=== PATIENT | male | born 2000 | race Caucasian/White ===

== ENCOUNTER 2021-02-18 21:36 | Emergency (ER) | payer OTHER ==
[~2021-02-18 21:36] MED LIST: AMOXIL250 MG/5 M PO; BACTROBAN OINT22 GM PO; CLARITIN10 MG PO; DDAVP; KEFLEX250 MG/5 M PO; LIDEX0.05% T; MOTRIN400 MG PO; [UNRECOGNIZED DRUG - CODE]; [UNRECOGNIZED DRUG - OTHER] PO
== END 2021-02-18 22:38 | disposition left against medical advice (07) ==
LOC: ED 21:36
DX: L08.9 Local infection of the skin and subcutaneous tissue, unspecified (principal); Z53.21 Procedure and treatment not carried out due to patient leaving prior to being seen by health care provider

== ENCOUNTER 2021-04-05 16:18 | Emergency (ER) | payer OTHER ==
[2021-04-06] MEDS ORDERED: TYLENOL325 M1 PO (16:44)
[2021-04-06] MEDS ORDERED: NAPROXEN250 MG PO (16:44)
== END 2021-04-05 17:11 | disposition left against medical advice (07) ==
LOC: ED 16:18
DX: M25.532 Pain in left wrist (principal); Z53.21 Procedure and treatment not carried out due to patient leaving prior to being seen by health care provider

== ENCOUNTER 2021-04-06 15:30 | Emergency (ER) | payer OTHER ==
[~2021-04-06] VITALS: Ht 187.9 cm; Wt 76.2 kg
[2021-04-06] MEDS ORDERED: NAPROXEN250 MG PO (16:44)
[2021-04-06] MEDS ORDERED: TYLENOL325 M1 PO (16:44)
== END 2021-04-06 17:28 | disposition home or self-care (01) ==
LOC: ED 15:30
DX: S63.502A Unspecified sprain of left wrist, initial encounter (principal); W18.39XA Other fall on same level, initial encounter; Y93.89 Activity, other specified; Y92.89 Other specified places as the place of occurrence of the external cause; Y99.8 Other external cause status